=== PATIENT | male | born 1995 | race Caucasian/White ===

== ENCOUNTER 2018-04-15 07:50 | Day surgery (SDC) | payer OTHER ==
[2018-04-15] MEDS ORDERED: Gelfoam 12-7 ADSORBABL SPONGE* 1 EA SPONGE ONE (09:05)
[2018-04-15] MEDS ORDERED: Bupivacaine 0.5% SDV PF* 30ML VIAL ONE (09:05)
[2018-04-15] MEDS ORDERED: Bacitracin OINTMENT* 0.5% 0.5 oz TUBE ONE (09:05)
[2018-04-15] MEDS ORDERED: Silver Sulfadiazine 1%* 20 GM ONE (09:06)
[2018-04-15] MEDS ORDERED: Lidocain 1% EPI 1:100,000 * 30 ML MDV ONE (09:11)
[2018-04-15 09:46] VITALS: BP 119/73
--- NOTE | 2018-04-15 13:13 | OP ---
DATE OF OPERATION: 04/15/18 - [facility] DATE OF : [birth year] SURGEON: Dereck Pate DPM. PHOTOENGRAVER: None. ANESTHESIA: Local anesthesia. 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 OPERATIVE PROCEDURE: Carbon dioxide laser ablation of plantar warts from left foot. PATHOLOGY: Shaving from the lesion. HEMOSTASIS: Pneumatic ankle tourniquet. INDICATIONS: The patient with chronic plantar wart for approximately 5 years, which had not fully responded to multiple previous treatments and at this time opts to have carbon dioxide laser ablation. DESCRIPTION OF PROCEDURE: The patient was brought to the operating room, placed on the operating table in supine position. The left foot was then prepped and a 1% lidocaine with epinephrine was infiltrated about the lesion and . The left foot was exsanguinated with Esmarch bandage and pneumatic ankle tourniquet was inflated to 250 mmHg above a well-padded left ankle. Next , using a carbon dioxide laser set at 6 khalil continuous, after assuring adequate anesthesia, the area of the lesion was ablated. Prior to this, a #15 blade was used as a shaving and sent off the field as specimen. After using laser, using a rongeur and curette, the lesion was bevelled and debrided and laser was again used until no further visible verrucoid tissue was noted. The area of lesion was then cauterized with the laser defocussed and the lesion was then washed and dressed with Silvadene and a fairly bulky sterile dressing, secured with Coban. The pneumatic ankle tourniquet was deflated above the left ankle and prompt hyperemic response was noted in all 5 digits of the patient's left foot. Having tolerated the procedures and anesthesia well, the patient was transported via cart from the operating room to Recovery in satisfactory condition with cap refill less than 3 seconds to all toes of the left foot. [id number] #: [id number] [facility]
== END 2018-04-15 09:47 | disposition home or self-care (01) ==
LOC: OREAST 07:50
PROVIDERS: ATTEND Podiatrist Foot Surgery
DX: B07.0 Plantar wart (principal); Z87.891 Personal history of nicotine dependence; M77.42 Metatarsalgia, left foot; M79.672 Pain in left foot
CPT/HCPCS: 88305; A9270-GY